=== PATIENT | female | born 1985 | race Caucasian/White ===

== ENCOUNTER 2019-12-07 15:45 | Inpatient (IN) | payer OTHER ==
[~2019-12-07] VITALS: Ht 152.4 cm; Wt 47.8 kg
[2019-12-07] MEDS ORDERED: IV NS 0.9% 1,000 ML BAG IV ONE (16:00)
[2019-12-07] MEDS ORDERED: ONDANSETRON HCL/PF 4 MG/2 ML VIAL IVP ONE (16:00)
[2019-12-07 16:10] LABS: BASOPHILS % (AUTO) 0.2 % (0.0-2.0); HEMATOCRIT 42 % (33-45); HEMOGLOBIN 13.9 g/dL (11.5-14.8); LYMPHOCYTES # (AUTO) 0.4 /CMM (0.8-4.8); MEAN CORPUSCULAR HGB CONC 33 g/dl (31.0-36.0); MEAN CORPUSCULAR VOLUME 93 fL (82-100); MONOCYTES # (AUTO) 0.2 /CMM (0.1-1.30); MONOCYTES % (AUTO) 1.9 % (2.0-12.0); NEUTROPHILS # (AUTO) 12.2 /CMM (1.8-8.9); NEUTROPHILS % (AUTO) 94.9 % (43.0-81.0); PLATELET COUNT (AUTO) 252 /CMM (150-450); RED BLOOD CELL COUNT(AUTO) 4.48 MIL/uL (4.0-5.2); WHITE BLOOD COUNT (AUTO) 12.9 K/uL (4.3-11.0)
[2019-12-07] MEDS ORDERED: ONDANSETRON HCL/PF 4 MG/2 ML VIAL ONE (16:13)
[2019-12-07 16:31] LABS: APPEARANCE,URINE Clear (CLEAR); BILIRUBIN,URINE Negative (NEGATIVE); BLOOD, URINE Moderate Ery/uL (NEGATIVE); COLOR,URINE Yellow (YELLOW); KETONES,URINE 80 (NEGATIVE); LEUKOCYTE ESTERASE ,URINE Negative (NEGATIVE); NITRITE, URINE Negative (NEGATIVE); PH,URINE 5.5 (5.0-8.0); PROTEIN,URINE Negative (NEGATIVE); UGLUCOSE Negative (NEGATIVE); UROBILINOGEN,URINE 0.2 EU/dL (0.2)
[2019-12-07 16:36] LABS: CALCIUM, SERUM 9.2 mg/dL (8.5-10.1); CREATININE 0.7 mg/dL (0.6-1.3); POTASSIUM 3.8 mmol/L (3.5-5.1)
[2019-12-07 16:40] LABS: ALBUMIN 4.7 g/dL (3.4-5.0); BILIRUBIN,DIRECT 0.2 mg/dL (0.0-0.2); BILIRUBIN,TOTAL 0.7 mg/dL (0.2-1.0); TOTAL PROTEIN, SERUM 7.8 g/dL (6.4-8.2)
[2019-12-07 16:41] LABS: BACTERIA,URINE Few /HPF (None Seen); RBC,URINE 21-50 /HPF (0-2); SQUAMOUS EPITHELIAL CELL,UR Few /HPF (None Seen); WBC,URINE 0-2 /HPF (0-3)
[2019-12-07] MEDS ORDERED: ESCI10TA PO (17:15)
[2019-12-07] MEDS ORDERED: IV D5/0.45 NACL 1,000 ML IV ONE (17:30)
[2019-12-07] MEDS ORDERED: PIPERACILLIN /TAZOBACTAM 3.375 G in IV D5W 50 ML IV ONE (17:30)
[2019-12-07] MEDS ORDERED: IV NS 0.9% 1,000 ML IV PRN (18:07)
[2019-12-07] MEDS ORDERED: HYDROCODONE/APAP 5/325MG 1 EACH TABLET PO PRN (18:30)
[2019-12-07] MEDS ORDERED: MAGNESIUM HYDROXIDE 30 ML UDC PO PRN (18:30)
[2019-12-07] MEDS ORDERED: Z GUARD REMEDY 2 OZ OINT TP PRN (18:30)
[2019-12-07] MEDS ORDERED: MORPHINE SULFATE INJ 2 MG/ML DISP.SYRIN IV PRN (18:30)
[2019-12-07] MEDS ORDERED: ONDANSETRON HCL/PF 4 MG/2 ML VIAL IVP PRN (18:30)
[2019-12-07] MEDS ORDERED: ACETAMINOPHEN 325 MG TABLET PO PRN (18:30)
[2019-12-07] MEDS ORDERED: MAG HYDROX/AL HYDROX/SIMETH 30 ML UDC PO PRN (18:30)
[2019-12-07] MEDS ORDERED: ZOLPIDEM TARTRATE 5 MG TABLET PO PRN (18:30)
--- NOTE | 2019-12-07 19:22 | NUR ---
TOOK OVER PT CARE. PT [id number]. PLACED ON MONITOR AND PULSE OX. AWARE OF BEING ADMITTED. VSS. AWAITING ROOM NUMBER.
--- NOTE | 2019-12-07 19:41 | NUR ---
ms 321-2
--- NOTE | 2019-12-07 19:54 | NUR ---
REPORT GIVEN FOR MAEVE
--- NOTE | 2019-12-07 20:30 | NUR ---
MS Powerhouse Engineer Initial notes Admit pt from ER via ray accompanied by commercial service technician. Complaint for right lower abdomen and DX od Appendicitis. Pt is alert oriented , ambulatory , with IVF of d51/2 NS at 150 ml/hr infusing at this time. No N/V noted . pain at tolerated level. Pt oriented how to use the call light and encourage her to use if she need some help or needs the nurse. side X2 up and bed in low and lock in position. kept her warm and comfortable at all times. will continue monitoring.
[2019-12-07 21:19] VITALS: BP 89/60
--- NOTE | 2019-12-07 21:40 | NUR ---
MS soumya notes Dr Meraz called and gave orders to get consent for procedure that will be doing for the pt. he also wants to talk to the patient regarding the procedure. he left his number and i gave it to the patient and i told to the patient to called that number [phone] at this time because the surgery doctor waiting for her call him back. pt understood well and they're started talking to each other . will continue monitoring.
[2019-12-07] MEDS: PIPERACILLIN /TAZOBACTAM 3.375 G in IV D5W 100 ML IV SCH (23:01)
[2019-12-08 06:42] LABS: BASOPHILS % (AUTO) 0.4 % (0.0-2.0); EOSINOPHILS % (AUTO) 0.9 % (0.0-6.0); HEMATOCRIT 37 % (33-45); HEMOGLOBIN 12.4 g/dL (11.5-14.8); LYMPHOCYTES # (AUTO) 1.2 /CMM (0.8-4.8); LYMPHOCYTES % (AUTO) 17.7 % (20.0-44.0); MEAN CORPUSCULAR HGB CONC 34 g/dl (31.0-36.0); MEAN CORPUSCULAR VOLUME 93 fL (82-100); MONOCYTES # (AUTO) 0.3 /CMM (0.1-1.30); MONOCYTES % (AUTO) 4.6 % (2.0-12.0); NEUTROPHILS # (AUTO) 5.1 /CMM (1.8-8.9); NEUTROPHILS % (AUTO) 76.4 % (43.0-81.0); PLATELET COUNT (AUTO) 214 /CMM (150-450); RED BLOOD CELL COUNT(AUTO) 3.95 MIL/uL (4.0-5.2); WHITE BLOOD COUNT (AUTO) 6.7 K/uL (4.3-11.0)
[2019-12-08] MEDS: PIPERACILLIN /TAZOBACTAM 3.375 G in IV D5W 100 ML IV SCH ×3 (06:49→22:35)
[2019-12-08 07:01] LABS: CALCIUM, SERUM 8.4 mg/dL (8.5-10.1); CREATININE 0.6 mg/dL (0.6-1.3); MAGNESIUM 2.3 mg/dL (1.8-2.4); PHOSPHORUS 3.9 mg/dL (2.5-4.9); POTASSIUM 3.5 mmol/L (3.5-5.1)
--- NOTE | 2019-12-08 07:38 | NUR ---
ms medical asst closing notes pt stable martin the nights no signs of any discomfort. IVF still infusing. all due meds given kept her warm and comfortable at all times.aware of her surgery today consent signed and check list partial done. endorse to am nurse.
--- NOTE | 2019-12-08 07:50 | NUR ---
MS/RN OPENING NOTES RECEIVED PATIENT ON BED. NO APPARENT RESPIRATORY DISTRESS NOTED. DENIES PAIN AT THIS TIME. WILL CONTINUE TO MONITOR.
[2019-12-08 08:00] VITALS: BP 119/67
[2019-12-08] MEDS ORDERED: LIDOCAINE HCL/MPF 1% 30 ML VIAL IJ ONE (09:32)
[2019-12-08] MEDS ORDERED: ANESTHESIA TRAY IN PYXIS 1 EA TRAY MC ONE (09:32)
[2019-12-08] MEDS ORDERED: BUPIVACAINE MPF 0.5% W/EPI INJ 30 ML VIAL ONE (09:33)
--- NOTE | 2019-12-08 09:45 | NUR ---
MS/RN NOTES PATIENT IS OUT IN THE UNIT. REPAIRER WELDING EQUIPMENT BY OR NURSE.
[2019-12-08] MEDS ORDERED: SUCCINYLCHOLINE CHLORIDE 20 MG/ML VIAL ONE (09:52)
[2019-12-08] MEDS ORDERED: FENTANYL PF 100MCG/2ML AMPUL ONE (09:52)
[2019-12-08] MEDS ORDERED: MIDAZOLAM HCL 2 MG/2ML VIAL ONE (09:52)
[2019-12-08] MEDS ORDERED: PROPOFOL 20 ML IV ONE (09:52)
--- NOTE | 2019-12-08 12:22 | NUR ---
MS/RN NOTES PATIENT CAME BACK FROM 0R. VITAL SIGN TAKEN BP 113/61 HR [address] AQUINO ORDER VITAL SIGN PER ROUTINE PRESENT IV OF 100 ML/HR, CLEAR LIQUID TODAY, REGULAR DIET IN AM IF STABLE, CBC BNP, MG PHOSPHOROUS IN AM, ACTIVITY TOLERATED. NOTED AND CARRIED OUT. WILL CONTINUE TO MONITOR.
[2019-12-08 12:28] VITALS: BP 113/61
[2019-12-08] MEDS ORDERED: IV NS 0.9% 1,000 ML IV PRN (14:00)
[2019-12-08] MEDS ORDERED: HYDROMORPHONE 1 MG/1 ML DISP.SYRIN IV PRN (14:00)
[2019-12-08] MEDS ORDERED: HYDROCODONE/APAP 10/325MG 1 EA TABLET PO PRN (14:00)
[2019-12-08 16:00] VITALS: BP 103/59
--- NOTE | 2019-12-08 18:39 | NUR ---
MS/RN CLOSING NOTES PATIENT IS ON BED. ALERT AND ORIENTED X4. PATIENT IN NO APPARENT RESPIRATORY DISTRESS NOTED. NO COMPLAINED OF PAIN AT THIS TIME. IV ACCESS AT LEFT AC # 18 G WITH IV FLUID OF NS 1L AT 75ML/HR ON AND INFUSING WELL. SEEN AND EXAMINED BY MD WITH ORDERS MADE CARRIED OUT. SAFETY MEASURE IN PLACED. BED IN LOWEST POSITION AND LOCKED. SIDE RAILS UP X2. CALL LIGHT WITHIN REACH. WILL ENDORSED TO CUSTOMER SUPPORT TECHNICIAN FOR MAEVE.
[2019-12-08 20:00] VITALS: BP 99/59
[2019-12-08 20:12] VITALS: BP 99/59
--- NOTE | 2019-12-08 20:25 | NUR ---
RETAIL DEPARTMENT MANAGER: RECEIVED REPORT FORM DOMINIC CISSE AT 1925. MET WITH PT AT BED SIDE. PT S/P LAP APPENDECTOMY WITH DR AQUINO THIS AFTERNOON. PT NOW ON CLEAR LIQUID, ABLE TO EAT DINNER, DENIES ANY N/V, DENIES ANY PAIN OR DISCOMFORT AT THIS TIME. PT CALM, COOPERATIVE, CURRENTLY DOING BREAST PUMP. IV ACCESS PATENT AND FLUSHING WELL, INFUSING WITH IV ATB ZOSYN AT 25ML/HR. DISCUSSED PLAN OF CARE TO PT, INCLUDING PRN MEDICATIONS FOR PAIN AND NAUSEA. PT AGREE AND UNDERSTAND. PT CONTINENT, AMBULATORY. SCD IN USE. SAFETY PRECAUTIONS FOR FALL INITIATED, CALL LIGHT IN REACH, WILL CONTINUE MONITORING PT.
--- NOTE | 2019-12-08 21:30 | NUR ---
RN NOTES: PT AMBULATING ROUND THE HALLWAY AT THIS TIME, ACCOMPANIED BY MORGAN ODOM. OFFERED TO CHANGE BEDDINGS, PT STATED BEDDING WERE CHANGED THIS AFTERNOON AFTER DINNER.
[2019-12-08 22:00] VITALS: BP 99/60
--- NOTE | 2019-12-08 22:00 | NUR ---
RN NOTES/I.S: PT STATED SHE DOESNT HAVE ANY PAIN BUT NOTED TO HAVE DISCOMFORT ON RIGHT FLANK AREA WHENEVER HAVING DEEP BREATHING. INCENTIVE SPIROMETER WAS INTRODUCED TO PT. EXPLAINED ABOUT THE PURPOSE AND INFORMED THIS WILL HELP STRENGTHEN HER DIAPHRAGM AND LUNGS (MUSCLES FOR BREATHING) THUS PREVENTS POST OP COMPLICATIONS SUCH LUNG COMPLICATIONS LIKE PNA AND ATELECTASIS. INSTRUCTED PT ON HOW TO USE INCENTIVE SPIROMETER. PT UNDERSTAND.
[2019-12-09 06:38] LABS: BASOPHILS % (AUTO) 0.3 % (0.0-2.0); EOSINOPHILS % (AUTO) 0.3 % (0.0-6.0); HEMATOCRIT 34 % (33-45); HEMOGLOBIN 11.3 g/dL (11.5-14.8); LYMPHOCYTES # (AUTO) 1.6 /CMM (0.8-4.8); LYMPHOCYTES % (AUTO) 20.5 % (20.0-44.0); MEAN CORPUSCULAR HGB CONC 34 g/dl (31.0-36.0); MEAN CORPUSCULAR VOLUME 94 fL (82-100); MONOCYTES # (AUTO) 0.4 /CMM (0.1-1.30); MONOCYTES % (AUTO) 5.3 % (2.0-12.0); NEUTROPHILS # (AUTO) 5.6 /CMM (1.8-8.9); NEUTROPHILS % (AUTO) 73.6 % (43.0-81.0); PLATELET COUNT (AUTO) 211 /CMM (150-450); WHITE BLOOD COUNT (AUTO) 7.6 K/uL (4.3-11.0)
--- NOTE | 2019-12-09 06:50 | NUR ---
End of shift report: Pt been doing breathing exercises with the help of incentive spirometer. Pt denies any n/v, pain throughout the shift. Pt able to pass gas. Iv access on left ac remains patent and flushing well, infusing with ns at 100 ml/hr, no s/s of iv infiltration noted. No s/s of active bleeding noted on surgical site, dermabond in placed. PLAN OF CARE: Advanced diet as tolerated per md, Continue IV hydration, Pain mngt, possible DC planning. Vs remains stable, needs attended. Safety precautions for fall remains engaged, call light in reach, will endorse to day aldair ALFARO for continuity of care.
[2019-12-09 06:52] LABS: MAGNESIUM 2.1 mg/dL (1.8-2.4); PHOSPHORUS 3.5 mg/dL (2.5-4.9)
--- NOTE | 2019-12-09 07:27 | NUR ---
MS/RN OPENING NOTES RECEIVED PATIENT ON BED. NO APPARENT RESPIRATORY DISTRESS NOTED. DENIES PAIN AT THIS TIME. WILL CONTINUE TO MONITOR.
[2019-12-09 08:00] VITALS: BP 96/62
--- NOTE | 2019-12-09 09:40 | NUR ---
MS/RN NOTES PATIENT IS ARCH SUPPORT TECHNICIAN BY OR NURSE FOR SURGERY. PATIENT IS IN STABLE CONDITION. PATIENT IN NO APPARENT RESPIRATORY DISTRESS NOTED. PATIENT DENIES PAIN AT THIS TIME. CONSENT AND PRE OP CHECK LIST WAS GIVEN TO OR NURSE.
--- NOTE | 2019-12-09 15:15 | NUR ---
MS/RN NOTES RECEIVED PATIENT IN STABLE CONDITION FROM OR, DRESSING DRY AND INTACT. PATIENT IS AWAKE, ALERT AND ORIENTED TO TIME, NAME AND PLACE. VITAL SIGN TAKEN AND RECORDED. WILL CONTINUE TO MONITOR.
--- NOTE | 2019-12-09 16:14 | NUR ---
MS/RN CLOSING NOTES PATIENT IS ALERT AND ORIENTED X4. PATIENT DENIES PAIN AT THIS TIME. IN ROOM AIR AND SATURATION IS AT 100%. RESPIRATION REGULAR AND UNLABORED. THE PATIENT IN NO APPARENT RESPIRATORY DISTRESS. SEEN AND EXAMINED BY MD WITH ORDERS MADE AND CARRI[place]. [place] [address]. PATIENT WAS GIVEN DISCHARGED INSTRUCTIONS AND PATIENT VERBALIZED UNDERSTANDING. THE PATIENT LEFT THE HOSPITAL IN STABLE CONDITION, ACCOMPANIED BY LETY ON A PRIVATE CAR.
--- NOTE | 2019-12-12 14:52 | NUR ---
CALLED BACK PATIENT TO CLARIFY HER CONCERN REGARDING THE DISCHARGE INSTRUCTION THAT WAS GIVEN TO HER PRIOR TO DISCHARGE, EXPLAINED TO PATIENT PREVIOUSLY INSTRUCTED DURING DISCHARGE REGARDING POST OP SURGERY CARE AND FOLLOW UP WITH DR. AQUINO WITHIN A WEEK UPON DISCHARGED. PATIENT VERBALIZED UNDERSTANDING, ACCORDING TO THE PATIENT SHE MADE AN APPOINTMENT THIS COMING Thursday12-19-[address] AQUINO.
== END 2019-12-09 16:00 | disposition home or self-care (01) | DRG 337 ==
LOC: ER 15:52 → MED 19:46
PROVIDERS: ADMIT Internal Medicine; ATTEND Internal Medicine
PROC: 0DNU4ZZ Release Omentum, Percutaneous Endoscopic Approach (ICD-10-PCS; principal; 2019-12-08)
PROC: 0DTJ4ZZ Resection of Appendix, Percutaneous Endoscopic Approach (ICD-10-PCS; principal; 2019-12-08)
DX: K35.30 Acute appendicitis with localized peritonitis, without perforation or gangrene (principal); K66.0 Peritoneal adhesions (postprocedural) (postinfection)
CPT/HCPCS: 36415; 80048-TC; 80076-TC; 81000-TC; 83690-TC; 83735-TC; 83880; 84100-TC; 84703-TC; 85025-TC; 87081-TC; 88304-TC; G0378; J0330; J2250; J2270; J2405; J2543; J2704; J3010; J3490; J7030; J7060